=== PATIENT | female | born 1960 | race Caucasian/White ===

== ENCOUNTER → 2017-09-08 | Outpatient (CLI) | payer OTHER ==
[~2017-09-08] MED LIST: OXYC1TAB3 PO
== END | disposition home or self-care (01) ==
LOC: C.LAB 23:41
DX: Z02.83 Encounter for blood-alcohol and blood-drug test (principal)

== ENCOUNTER 2017-11-01 19:19 | Inpatient (IN) | payer OTHER ==
[~2017-11-01] VITALS: Ht 177.8 cm; Wt 52.1 kg
[2017-11-01 20:21] LABS: BASO % 1.1 %; BASO ABS # 0.06 K/uL (0-0.2); EOS % 5.8 %; EOS ABS # 0.31 K/uL (0-0.5); HEMATOCRIT 36.6 % (37-47); HEMOGLOBIN 12.4 g/dL (12.0-16.0); IG# 0.01 K/uL (0.00-0.02); LYMPH % 33.6 %; MEAN CELL VOLUME 101.7 fL (80-100); MEAN CORPUSCULAR HEMOGLOBIN 34.4 pg (25-34); MEAN CORPUSCULAR HGB CONC 33.9 g/dl (32-36); MEAN PLATELET VOLUME 10.1 fL (7.4-10.4); MONO % 6.5 %; MONO ABS # 0.35 K/uL (0.11-0.59); NEUT % 52.8 %; NEUT ABS # 2.82 K/uL (1.4-6.5); PLATELET COUNT 315 K/uL (130-400); RED CELL DISTRIBUTION WIDTH CV 14.8 % (11.5-14.5); RED CELL DISTRIBUTION WIDTH SD 55.2 fL (36.4-46.3); WHITE BLOOD COUNT 5.35 K/uL (4.8-10.8)
[2017-11-01 20:39] LABS: ALT/SGPT 29 U/L (12-78); BLOOD UREA NITROGEN 12 mg/dl (7-18); CALCIUM 8.3 mg/dl (8.5-10.1); CARBON DIOXIDE 28 mmol/L (21-32); CREATININE 0.56 mg/dl (0.60-1.20); GLUCOSE 121 mg/dl (70-99); POTASSIUM 3.3 mmol/L (3.5-5.1); SODIUM 144 mmol/L (136-145)
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
[2017-11-01 20:50] LABS: ALKALINE PHOSPHATASE 101 U/L (45-117); AST/SGOT 51 U/L (15-37); TOTAL PROTEIN 7.1 gm/dl (6.4-8.2)
[2017-11-02 07:23] VITALS: O2SAT 99
--- NOTE | 2017-11-02 08:30 | EMERGENCY ROOM VISIT NOTE ---
ED Visit Note First contact with patient: 01:34 I received this patient in signout at the change of shift from Dr. Coker pending a more sober state and mental health evaluation. This patient was evaluated and appeared to be in no distress. Patient adamantly denies any inpatient psychiatric admissions, diagnosis of bipolar disorder or any suicidal statements. Nursing staff and psychiatric liaison did speak with the patient's son who gave specific details and will be in later this morning to file a petitioning statement supporting the patient's danger to self. The case has been signed out to Dr. Butterfield at the change of shift pending counts include 234 beds at the [facility] delegate evaluation.
--- NOTE | 2017-11-02 10:37 | EMERGENCY ROOM VISIT NOTE ---
ED Visit Note Patient admitted to [address] [place] [address].
[2017-11-02] MEDS ORDERED: SODIUM CHLORIDE 0.65% NA SOLN 45 ML (OCEAN) PRN (10:45)
[2017-11-02] MEDS ORDERED: ALUMINUM/MAGNESIUM SUSP 30 ML UDC PO PRN (10:45)
[2017-11-02] MEDS ORDERED: MAGNESIUM HYDROXIDE SUSP 30 ML UDC PO PRN (10:45)
[2017-11-02] MEDS ORDERED: CLON1TAB3 PO (10:57)
[2017-11-02] MEDS ORDERED: CYCL10TA6 PO (10:57)
[2017-11-02] MEDS ORDERED: ZOLP10TA PO (10:57)
[2017-11-02] MEDS ORDERED: RTL20 PO (10:58)
[2017-11-02] MEDS ORDERED: MIRT15TA2 PO (10:59)
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
[2017-11-02 12:36] VITALS: BP 109/73; PULSE 93; TEMP 36.6; BMI 16.5
[2017-11-02 13:00] VITALS: BP 109/73; PULSE 93; TEMP 36.6
[2017-11-02] MEDS ORDERED: LORAZEPAM 1 MG TAB PO PRN (13:00)
[2017-11-02] MEDS: THIAMINE HCL 100 MG TAB PO SCH (13:49)
[2017-11-02] MEDS: BISMUTH SUBSALICYLATE PER ML OMNICELL CHARGE PO PRN ×2 (14:45→18:05)
[2017-11-02] MEDS: NICOTINE 21 MG/24 HR TDSY TD SCH (14:47)
[2017-11-02 17:18] VITALS: BP 124/83; PULSE 82; TEMP 37.1
[2017-11-02] MEDS: ACETAMINOPHEN 325 MG TAB PO PRN (19:22)
[2017-11-02] MEDS: MIRTAZAPINE SOLTAB 15 MG PO SCH (21:07)
[2017-11-02] MEDS: CLONAZEPAM 0.5 MG TAB PO SCH ×2 (21:07→21:29)
[2017-11-03 04:19] VITALS: BP 123/82; PULSE 90; TEMP 36.6
[2017-11-03 08:09] VITALS: BP 117/83; PULSE 99; TEMP 36.8
[2017-11-03] MEDS: BISMUTH SUBSALICYLATE PER ML OMNICELL CHARGE PO PRN (08:16)
[2017-11-03] MEDS: CLONAZEPAM 0.5 MG TAB PO SCH ×2 (08:28→21:13)
[2017-11-03] MEDS: THIAMINE HCL 100 MG TAB PO SCH (08:29)
[2017-11-03] MEDS: NICOTINE 21 MG/24 HR TDSY TD SCH (08:32)
--- NOTE | 2017-11-03 10:12 | Psych Management Progress Note ---
Psychiatry Miscellaneous Date of Service: Nov 03, 2017. Patient seen, MS assessed. Rates mood as 7/10. Patient would like to learn tools to cope with her anxiety without being so reactive. Encouraged cooperation with care and treatment plan as outlined by allied health prescriber. Participated in treatment team and reportedly patient not yet aware that family have removed her 18 yo from the home. Patient is not aware that another son was recently a patient and reviewed unit policies re: visitation of recent patients--family session would be most appropriate.
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
[2017-11-03 12:03] VITALS: BP 127/88; PULSE 100; TEMP 36.8
[2017-11-03] MEDS ORDERED: POTASSIUM CHLORIDE 20 MEQ TABCR PO ONE (12:14)
[2017-11-03 12:58] VITALS: Ht 177.8 cm; Wt 52.1 kg
[2017-11-03] MEDS ORDERED: BOOST VANILLA PO PRN (13:00)
[2017-11-03] MEDS ORDERED: MULTIVITAMIN TAB PO ONE (13:15)
[2017-11-03 13:17] LABS: PHOSPHORUS 3.4 mg/dl (2.5-4.9)
[2017-11-03] MEDS: hydrOXYzine HCL 25 MG TAB PO PRN ×3 (13:37→23:58)
[2017-11-03 16:07] VITALS: BP 110/60; PULSE 97; TEMP 36.9
[2017-11-03 20:18] VITALS: BP 120/75; PULSE 73; TEMP 36.5
[2017-11-03] MEDS: MIRTAZAPINE SOLTAB 15 MG PO SCH (21:13)
[2017-11-04 06:51] VITALS: BP_SYST 101; BP_SYST 96; BP_DIAS 63; BP_DIAS 73; PULSE 77; PULSE 93; TEMP 36.9
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
[2017-11-04] MEDS: POTASSIUM CHLORIDE 20 MEQ TABCR PO SCH (08:49)
[2017-11-04] MEDS: MULTIVITAMIN TAB PO SCH (08:49)
[2017-11-04] MEDS: THIAMINE HCL 100 MG TAB PO SCH (08:49)
[2017-11-04] MEDS: NICOTINE 21 MG/24 HR TDSY TD SCH (08:51)
[2017-11-04] MEDS: hydrOXYzine HCL 25 MG TAB PO PRN ×4 (08:51→22:47)
[2017-11-04] MEDS: CLONAZEPAM 0.5 MG TAB PO SCH ×2 (08:51→22:47)
[2017-11-04] MEDS: ACETAMINOPHEN 325 MG TAB PO PRN (15:54)
[2017-11-04] MEDS: MIRTAZAPINE SOLTAB 15 MG PO SCH (22:47)
[2017-11-05] MEDS: hydrOXYzine HCL 25 MG TAB PO PRN ×4 (02:00→18:41)
--- NOTE | 2017-11-05 06:40 | Psychiatric Progress Notes ---
Progress Note Date of Service Nov 05, 2017. Interval History 57-year-old white female with an unclear psychiatric history who is prescribed multiple controlled substances by her outpatient psychiatrist and presents on a 302 involuntary commitment due to family's concerns that she has been abusing her medications, multiple recent DUIs, episodes of unresponsiveness , and threatened suicide the night prior to admission when family tried to intervene. Chief Complaint "Really good". Subjective Patient was seen & assessed interval progress reviewed with Nursing. Staff report she goes to very few groups, with little participation. She is on eating disorder protocol. She signed an ROXANNE for her son Dwain whom she lives with, but staff have not yet been able to reach him to schedule a meeting for discharge purposes. She had a repeat potassium this morning, and was WNLs 3.7. She states mood is "really good," says she is going to groups, talked to her son Aleks on the phone, which she enjoyed, saying she is relieved that he is not angry with her. She thinks her daughter Jazmine is upset with her as she had expressed concerns about the patient's behavior, substance abuse, and eating disorder. The patient continues to minimize this, says she is "snacking like crazy," and denies purging. She says she still has not been able to reach Dwain. She reports poor sleep, per staff got 4.5 hours with hydroxyzine 50mg x 2. She wants to know what else she can try for sleep, and discussed trial of trazodone, which she agreed to. She states she plans to return to Dwain's house and live there until the spring, then will stay in her camper. Sleep Information Total Hours of Sleep: 4.50 Meal Information Percent of Breakfast Consumed: 80 Percent of Lunch Consumed: 50 Percent of Dinner Consumed: 25 Mental Status Exam During interview pt is: alert and oriented, cooperative Appearance: other (very thin, wearing a wig, dressed in the same" since admission, wrapped in a blanket) Eye contact is: good Motor behavior is: steady gait & station, no abnormal motor movements Speech: other (voluminous, slightly rapid, but not pressured) Affect: other (mildly expansive, bubbly) Mood is: other ("great") Thought process: goal directed Thought content: reality based without delusions Suicidal thought are: denied Homicidal thoughts are: denied Hallucinations: denies auditory, denies visual Cognition: attention grossly intact, language grossly intact Intelligence estimated to be: average Insight: impaired Judgement: impaired Impression Controlled substances are being tapered off due to persistent substance abuse, while continuing mirtazapine for mood and trying different medications for sleep. She continues to deny suicidal thoughts, and may be minimizing presenting symptoms. She had a family meeting with her daughter Jazmine, who has the patient's 18-year-old son staying with her due to the patient's recent instability, and she has been referred for OP substance use counseling. We have recommended involving her other children, including and especially the son that she lives with, to review safety plan issues and ensure that she is able to return to live there, but he has not returned calls as of today. She denies disordered eating, although family reports she purges, and she is significantly underweight, so met with the dietitian and was started on the eating disorder protocol. At this time, she continues to require inpatient treatment due to the need for medication adjustments, increased stability in mood anxiety and sleep, and coordination with family whom she lives with to discuss disposition , discharge safety plan, and treatment. Plan (1) Suicidal ideation 2 - admitted on a 302 involuntary commitment. Suicide checks for safety. Encourage participation in unit groups and programming. - Schedule family meeting, as the patient denies the allegations in the petition , and is an unreliable historian. - Would on plan to ensure no access to guns, abusable medications, etc. - Get records from Dr. Camp, her psychiatrist at [facility] in [place], to clarify diagnoses and recommended medications. - Continue mirtazapine for now, although the patient states she is not taking it regularly at home. Her records mention a history of bipolar disorder, so we will need to clarify her diagnosis in order to determine proper medications. 2/2 - Denies today, but mood depressed because she realizes what she did under the influence - Will need family meeting with local children - continue bzd taper 2/3 - Ask social sciences chair to schedule a family meeting with the son that she lives with, to ensure that she can return there, and to review safety plan. We will also recommended that he bring in her medications, so the controlled substances that have been discontinued to be safely disposed of. (2) Depression 2/3 - Differential includes a mood disorder such as depression or bipolar disorder, adjustment disorder, substance induced depression, and personality disorder. He requested records from Dr. Camp, but has not yet received them, and now the patient has rescinded her release to speak with him. She is focused only on benzodiazepines and other controlled substances, and is not interested in taking an antidepressant, although mirtazapine 15 mg daily at bedtime was continued on admission. Suspect a significant [place] II component based on her behavior here. 2/4 - continue mirtazapine 15 mg daily at bedtime. Discontinue hydroxyzine, as she does not think it has been very helpful for sleep, and start trial of trazodone 50 mg daily at bedtime, may repeat 1 if needed. (3) Polysubstance abuse 2/ - per family, patient has been abusing her prescription medications, and has had episodes of unresponsiveness and wild mood swings at home, likely secondary to substance abuse. She has also had 2 recent DUIs, with a court date next week. Advised her that we will taper her off the clonazepam here, discontinue ambien and methylphenidate, and will coordinate with Dr. Camp (she indicates she has Rxs waiting to be picked up, and has run out early). - Recommend substance abuse treatment. 2/2 - Recommend substance use counseling 2/3 - Patient referred to [facility] for substance abuse treatment. We will taper her off of controlled substances here. - Pt states she drives, and was unwilling to follow recommendations not to drive until she has had a period of sobriety and is stable. Informed that [place] DOT report would be submitted and that she should not drive until she is stable , sober, and cleared by a physician. - Pt rescinded ROXANNE for Dr. Camp, and if she will not sign one at discharge, will contact him verbally at discharge to coordinate care. 2/4 - Continue clonazepam taper. (4) Anxiety 2/3 - patient reports chronic anxiety, likely exacerbated by use of stimulants, benzodiazepines, and alcohol. She will require ongoing monitoring to determine what her diagnosis is one she is sober from substances. Would not recommend prescribing her any controlled substances given her severe addiction issues. (5) Alcohol abuse Patient minimizes her alcohol use, but family reports she is drinking to intoxication most nights. Will start AWSS monitor for withdrawal symptoms. She is not open to discussing her substance use at this time, is not forthcoming , and this will need to be addressed throughout the course of her stay. She is agreeable to a family meeting, and would recommend that all family members with concerns attend so they can discuss their observations and confronted her with some of her behavior. 2/3 - patient has not been scoring on AWSS, so we will discontinue it. - Refer to [facility] for substance abuse treatment. - The patient's AUDIT score suggests problematic drinking (Zone III WHO). Brief intervention was offered and accepted Interventio was greater than 5 min in length. Brief interventions include: 1. Assess Readiness to Quit, 2. Advise: Help Patient to Reduce or Abstain from Alcohol, 3. Agree: Set Specific, Feasible Goals, 4. Assist: Anticipate barriers, Problem-Solving Solutions. Social work to 5. Arrange: Referrals to appropriate treatment. Summary of intervention: The patient is in precontemplation stage with regards to transtheoretical model of change. The patient is advised to decrease alcohol consumption due to depressant effects and risk of interactions with prescription medications. The patient agreed to stop drinking and attend D&A treatment, and will be provided with recovery materials to continue to education self on how to cope with their condition without drinking. Discharge / Aftercare Planning Primary Care Physician: Name: Christiano Psychiatrist: Name: [facility] Ed Camp Date of Appointment: Nov 21, 2017 Time of Appointment: 3:45 pm Appointment Notes: [address] [place] [id number] Therapist: Name: [facility] Date of Appointment: Nov 13, 2017 Time of Appointment: 5:30 pm Appointment Notes: [address] [place] [address] Chocolate Dipper: Name: N/A Visit Code E&M Code: 49663 Inventory Assets Strengths: Has housing, has outpatient psychiatrist Needs: Substance abuse treatment, coordination with OP provider who is prescribing multiple controlled substances Risk Factors Assessment : Yes /single/: Yes Higher / Fall in social status: No Health problems: Yes Mental Health Diagnoses: Yes Substance use disorders: Yes Previous attempt: Yes Family history of suicide: No Previous psychiatric stay: Yes Hopelessness: No Smoker: Yes Protective Factors Assessment Orthodox beliefs: Yes : No Responsible for young children: No Employed: No Stable relationships: No Supportive family: Yes Data Vital Signs Last 24 Hrs: Date Time Temp Pulse Resp B/P (MAP) Pulse Ox O2 Delivery O2 Flow Rate FiO2 11/04/17 06:51 36.9 77 16 96/63 93 101/73 Meds Administered Last 24 Hrs: Meds Administered (Past 24Hrs) Medications (Trade) Dose Ordered Sig/Salomon Route Start Time Stop Time Status Last Admin Dose Admin Nicotine (Nicoderm Cq 21MG Patch) 1 patch QAM TD 11/03/17 09:00 12/03/17 08:59 11/02/17 14:47 1 PATCH Potassium Chloride (Klor-Con Tab) 40 meq QAM PO 11/04/17 09:00 12/04/17 08:59 11/04/17 08:49 40 MEQ Potassium Chloride (Klor-Con Tab) 40 meq 1214 ONCE PO 11/03/17 12:14 11/03/17 12:31 DC 11/03/17 13:07 40 MEQ Multivitamins (Multivitamin Tab) 1 tab QAM PO 11/04/17 09:00 12/04/17 08:59 11/04/17 08:49 1 TAB Multivitamins (Multivitamin Tab) 1 tab NOW ONCE PO 11/03/17 13:15 11/03/17 13:16 DC 11/03/17 14:04 1 TAB Folic Acid (Folvite Tab) 1 mg QAM PO 11/04/17 09:00 12/04/17 08:59 11/04/17 08:49 1 MG Folic Acid (Folvite Tab) 1 mg NOW ONCE PO 11/03/17 13:15 11/03/17 13:16 DC 11/03/17 14:04 1 MG
[2017-11-05 06:51] VITALS: BP 98/62; PULSE 87; PULSE 96; TEMP 36.7
[2017-11-05] MEDS: CLONAZEPAM 0.5 MG TAB PO SCH ×2 (08:09→22:09)
[2017-11-05] MEDS: POTASSIUM CHLORIDE 20 MEQ TABCR PO SCH (08:10)
[2017-11-05] MEDS: MULTIVITAMIN TAB PO SCH (08:10)
[2017-11-05] MEDS: THIAMINE HCL 100 MG TAB PO SCH (08:10)
[2017-11-05] MEDS: NICOTINE 21 MG/24 HR TDSY TD SCH ×2 (08:17→11:06)
[2017-11-05] MEDS: ACETAMINOPHEN 325 MG TAB PO PRN (14:59)
[2017-11-05] MEDS: MIRTAZAPINE SOLTAB 15 MG PO SCH (22:09)
[2017-11-05] MEDS: TRAZODONE HCL 50 MG TAB PO PRN ×2 (22:11→23:31)
[2017-11-06 06:48] VITALS: BP_SYST 96; BP_SYST 98; BP_DIAS 62; BP_DIAS 67; PULSE 105; PULSE 86; TEMP 36.9
[2017-11-06] MEDS: hydrOXYzine HCL 25 MG TAB PO PRN ×3 (07:39→16:02)
[2017-11-06] MEDS: POTASSIUM CHLORIDE 20 MEQ TABCR PO SCH (08:21)
[2017-11-06] MEDS: THIAMINE HCL 100 MG TAB PO SCH (08:21)
[2017-11-06] MEDS: MULTIVITAMIN TAB PO SCH (08:21)
[2017-11-06] MEDS: NICOTINE 21 MG/24 HR TDSY TD SCH (08:22)
--- NOTE | 2017-11-06 10:01 | Psychiatric Progress Notes ---
Progress Note Date of Service Nov 06, 2017. Interval History 57-year-old white female with an unclear psychiatric history who is prescribed multiple controlled substances by her outpatient psychiatrist and presents on a 302 involuntary commitment due to family's concerns that she has been abusing her medications, multiple recent DUIs, episodes of unresponsiveness , and threatened suicide the night prior to admission when family tried to intervene. Chief Complaint "There are two things I wanted to talk to you about, it's medications". Subjective Patient was seen & assessed interval progress reviewed with treatment team. Staff report On my assessment, the patient states she tried the trazodone 50mg x 2, and did eventually fall asleep, but it took a while. She wants to know if she can get an anxiety medication "that is a little more than Vistaril, I take it all day and I barely notice anything..." She says she wants to have medications available to take "if I'm stressed or anxious." She says she is "thinking about starting to try to get healthy, jogging and stuff" as another way to cope. She says she is going to groups and feels she is changing her outlook on talking about her problems, "it's okay to say I've been struggling. She is agreeable to following up with a therapist at [facility]. She had rescinded her ROXANNE for her psychiatrist, Dr. Camp, saying she needed Ambien, Klonopin and Ritalin, and didn' t want him to know these medications had been stopped. She initially says she has no controlled substances at home, but when asked about her Ritalin which per PDMP she filled 10/27/17, she says it is probably at her house. She refuses recommendations to increase her mirtazapine, saying it causes her ankles to swell, but agreed to increase trazodone to 100mg. Sleep Information Total Hours of Sleep: 5.25 Meal Information Percent of Breakfast Consumed: 75 Percent of Lunch Consumed: 75 Percent of Dinner Consumed: 100 Mental Status Exam During interview pt is: alert and oriented, cooperative Appearance: other (very thin, wearing a wig, wrapped in a blanket) Eye contact is: fair Motor behavior is: steady gait & station, no abnormal motor movements Speech: other (voluminous, slightly rapid, but not pressured) Affect: other (mildly expansive, bubbly, superficial) Mood is: other ("good") Thought process: goal directed, perseveration (on requests for additional anxiety medications) Thought content: reality based without delusions Suicidal thought are: denied Homicidal thoughts are: denied Hallucinations: denies auditory, denies visual Cognition: attention grossly intact, language grossly intact Intelligence estimated to be: average Insight: impaired Judgement: impaired Medication Trials patient doesn't know, but says she doesn't like SSRIs, "they don't affect me right." quetiapine - "That's a terrible drug." lithium ?Zoloft Impression Controlled substances are being tapered off due to persistent substance abuse, while continuing mirtazapine for mood and trying different medications for sleep. She continues to deny suicidal thoughts, and may be minimizing presenting symptoms. She had a family meeting with her daughter Jazmine, who has the patient's 18-year-old son staying with her due to the patient's recent instability, and she has been referred for OP substance use counseling. We have recommended involving her other children, including and especially the son that she lives with, to review safety plan issues and ensure that she is able to return to live there, and to bring in her prescription medication bottles so that medications that his been discontinued can be safely disposed of, and to limit her access to abusable medication. She denies disordered eating, although family reports she purges, and she is significantly underweight, so met with the dietitian and was started on the eating disorder protocol. She has been steadily losing weight here, despite her reports that she is eating all of her meals plus snacks. Staff did hear her vomiting in her room earlier in her admission. At this time, she continues to require inpatient treatment due to the need for medication adjustments, increased stability in mood anxiety and sleep, and coordination with family whom she lives with to discuss disposition , discharge safety plan, and treatment. Plan (1) Suicidal ideation 11/02 - admitted on a 302 involuntary commitment. Suicide checks for safety. Encourage participation in unit groups and programming. - Schedule family meeting, as the patient denies the allegations in the petition , and is an unreliable historian. - Would on plan to ensure no access to guns, abusable medications, etc. - Get records from Dr. Camp, her psychiatrist at [facility] in [place], to clarify diagnoses and recommended medications. - Continue mirtazapine for now, although the patient states she is not taking it regularly at home. Her records mention a history of bipolar disorder, so we will need to clarify her diagnosis in order to determine proper medications. 2/2 - Denies today, but mood depressed because she realizes what she did under the influence - Will need family meeting with local children - continue bzd taper 2/3 - Ask forensic social worker to schedule a family meeting with the son that she lives with, to ensure that she can return there, and to review safety plan. We will also recommended that he bring in her medications, so the controlled substances that have been discontinued to be safely disposed of. 2 - emery wheel worker spoke with the patient's son Dwain, who states that she can return to live with him, and that he will look for any discontinued medications to bring into the hospital for disposal. (2) Depression 2/3 - Differential includes a mood disorder such as depression or bipolar disorder, adjustment disorder, substance induced depression, and personality disorder. He requested records from Dr. Camp, but has not yet received them, and now the patient has rescinded her release to speak with him. She is focused only on benzodiazepines and other controlled substances, and is not interested in taking an antidepressant, although mirtazapine 15 mg daily at bedtime was continued on admission. Suspect a significant [place] II component based on her behavior here. 2/4 - continue mirtazapine 15 mg daily at bedtime. Discontinue hydroxyzine, as she does not think it has been very helpful for sleep, and start trial of trazodone 50 mg daily at bedtime, may repeat 1 if needed. 2/5 - patient refusing recommendations to increase mirtazapine to 30 mg daily at bedtime, stating it causes ankle swelling. She is requesting something else for anxiety, but is a poor historian with respect to past medication trials, and we have not yet received records from Dr. Camp at [facility]. I will ask staff to follow-up on requesting those records again, and advised the patient that without more information about her past medication trials, and hesitant to start new medication. She did agree to increase her trazodone to 100 mg daily at bedtime with repeat 1 if needed to target sleep. (3) Polysubstance abuse 2/ - per family, patient has been abusing her prescription medications, and has had episodes of unresponsiveness and wild mood swings at home, likely secondary to substance abuse. She has also had 2 recent DUIs, with a court date next week. Advised her that we will taper her off the clonazepam here, discontinue ambien and methylphenidate, and will coordinate with Dr. Camp (she indicates she has Rxs waiting to be picked up, and has run out early). - Recommend substance abuse treatment. 2/2 - Recommend substance use counseling 2/3 - Patient referred to [facility] for substance abuse treatment. We will taper her off of controlled substances here. - Pt states she drives, and was unwilling to follow recommendations not to drive until she has had a period of sobriety and is stable. Informed that [place] DOT report would be submitted and that she should not drive until she is stable , sober, and cleared by a physician. - Pt rescinded ROXANNE for Dr. Camp, and if she will not sign one at discharge, will contact him verbally at discharge to coordinate care. 2/4 - Continue clonazepam taper. (4) Anxiety 2/3 - patient reports chronic anxiety, likely exacerbated by use of stimulants, benzodiazepines, and alcohol. She will require ongoing monitoring to determine what her diagnosis is one she is sober from substances. Would not recommend prescribing her any controlled substances given her severe addiction issues. 2/5 - continue to encourage the patient to work on behavioral techniques for managing anxiety, as she tends to turn to medication when she feels any distress. (5) Alcohol abuse Patient minimizes her alcohol use, but family reports she is drinking to intoxication most nights. Will start AWSS monitor for withdrawal symptoms. She is not open to discussing her substance use at this time, is not forthcoming , and this will need to be addressed throughout the course of her stay. She is agreeable to a family meeting, and would recommend that all family members with concerns attend so they can discuss their observations and confronted her with some of her behavior. 2/3 - patient has not been scoring on AWSS, so we will discontinue it. - Refer to [facility] for substance abuse treatment. - The patient's AUDIT score suggests problematic drinking (Zone III WHO). Brief intervention was offered and accepted Intervention was greater than 5 min in length. Brief interventions include: 1. Assess Readiness to Quit, 2. Advise: Help Patient to Reduce or Abstain from Alcohol, 3. Agree: Set Specific, Feasible Goals, 4. Assist: Anticipate barriers, Problem-Solving Solutions. Social work to 5. Arrange: Referrals to appropriate treatment. Summary of intervention: The patient is in precontemplation stage with regards to transtheoretical model of change. The patient is advised to decrease alcohol consumption due to depressant effects and risk of interactions with prescription medications. The patient agreed to stop drinking and attend D&A treatment, and will be provided with recovery materials to continue to education self on how to cope with their condition without drinking. 2 - referred to [facility] for substance abuse treatment. Consider inpatient rehabilitation if she is unable to maintain sobriety with outpatient treatment. - [place] DOT paperwork submitted, and patient advised that she should not drive until she has achieved a period of sobriety in been cleared by physician. Discharge / Aftercare Planning Primary Care Physician: Name: Christiano Psychiatrist: Name: [facility] Ed Camp Date of Appointment: Nov 21, 2017 Time of Appointment: 3:45 pm Appointment Notes: [address] [facility] [place] [address] Therapist: Name: [facility] - [facility]Alcohol Counsel[facility] Date of Appointment: Nov 13, 2017 Time of Appointment: 5:30 pm Appointment Notes: [address] [place] [address] Interior Design Director: Name: N/A Visit Code E&M Code: 67029 Inventory Assets Strengths: Has housing, has outpatient psychiatrist Needs: Substance abuse treatment, coordination with OP provider who is prescribing multiple controlled substances Risk Factors Assessment : Yes /single/: Yes Higher / Fall in social status: No Health problems: Yes Mental Health Diagnoses: Yes Substance use disorders: Yes Previous attempt: Yes Family history of suicide: No Previous psychiatric stay: Yes Hopelessness: No Smoker: Yes Protective Factors Assessment Congregation beliefs: Yes : No Responsible for young children: No Employed: No Stable relationships: No Supportive family: Yes Data Vital Signs Last 24 Hrs: Date Time Temp Pulse Resp B/P (MAP) Pulse Ox O2 Delivery O2 Flow Rate FiO2 11/06/17 06:48 36.9 86 16 98/62 105 96/67 Meds Administered Last 24 Hrs: Meds Administered (Past 24Hrs) Medications (Trade) Dose Ordered Sig/Salomon Route Start Time Stop Time Status Last Admin Dose Admin Trazodone HCl (Desyrel Tab) 50 mg HS PRN PO 11/05/17 10:00 12/05/17 09:59 11/05/17 23:31 50 MG
[2017-11-06] MEDS: ACETAMINOPHEN 325 MG TAB PO PRN (11:55)
[2017-11-06] MEDS ORDERED: BOOST VANILLA PO SCH (14:00)
[2017-11-06] MEDS: CLONAZEPAM 0.5 MG TAB PO SCH (21:04)
[2017-11-06] MEDS: MIRTAZAPINE SOLTAB 15 MG PO SCH (21:04)
[2017-11-06] MEDS: TRAZODONE HCL 50 MG TAB PO PRN (22:49)
[2017-11-07] MEDS: TRAZODONE HCL 50 MG TAB PO PRN (01:34)
[2017-11-07 06:55] VITALS: BP_SYST 91; BP_SYST 99; BP_DIAS 59; BP_DIAS 68; PULSE 86; PULSE 97; TEMP 37.1
[2017-11-07] MEDS: MULTIVITAMIN TAB PO SCH (08:42)
[2017-11-07] MEDS: POTASSIUM CHLORIDE 20 MEQ TABCR PO SCH (08:42)
[2017-11-07] MEDS: THIAMINE HCL 100 MG TAB PO SCH (08:42)
[2017-11-07] MEDS: NICOTINE 21 MG/24 HR TDSY TD SCH ×2 (08:43→08:47)
[2017-11-07] MEDS ORDERED: DSY50 PO (08:59)
[2017-11-07] MEDS ORDERED: THM100 PO (08:59)
[2017-11-07] MEDS ORDERED: MULT-890 PO (08:59)
[2017-11-07] MEDS ORDERED: FLV1 PO (08:59)
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
[2017-11-07] MEDS ORDERED: BOOST VANILLA PO SCH (10:00)
== END 2017-11-07 09:25 | disposition home or self-care (01) | DRG 880 ==
LOC: C.EDB 19:20 → C.MHU 11-02 10:43
PROVIDERS: ADMIT Psychiatry & Neurology Psychiatry; ATTEND Psychiatry & Neurology Psychiatry
DX: R45.851 Suicidal ideations (principal); F41.9 Anxiety disorder, unspecified; F10.129 Alcohol abuse with intoxication, unspecified; F17.200 Nicotine dependence, unspecified, uncomplicated

== ENCOUNTER → 2018-01-27 | Outpatient (CLI) | payer OTHER ==
[~2018-01-27] MED LIST changes: +DSY50 PO; +FLV1 PO; +MIRT15TA2 PO; +MULT-890 PO; -OXYC1TAB3 PO; +THM100 PO
== END | disposition home or self-care (01) ==
LOC: C.LAB 18:37
DX: Z02.83 Encounter for blood-alcohol and blood-drug test (principal)